=== PATIENT | male | born 1990 | race Caucasian/White ===

== ENCOUNTER 2023-05-24 23:40 | Emergency (ER) | payer SELFPAY ==
[~2023-05-24] VITALS: Ht 177.8 cm; Wt 85.0 kg
[2023-05-24 23:52] VITALS: TEMP 98.4; O2SAT 100
[2023-05-25] MEDS ORDERED: IBUPROFEN 600MG TABLET PO ONE (01:00)
[2023-05-25 02:15] VITALS: BP 118/75; PULSE 80; RESP 16
[2023-05-25] MEDS ORDERED: NAPR-1176 MT (02:15)
[2023-05-25] MEDS ORDERED: KETOROLAC 30MG/ML VIAL IM ONE (02:15)
[2023-05-25] MEDS ORDERED: CYCL10TA21 MT (02:52)
== END 2023-05-25 03:01 | disposition home or self-care (01) ==
LOC: ER 23:40
DX: T14.8XXA Other injury of unspecified body region, initial encounter (principal); X58.XXXA Exposure to other specified factors, initial encounter; Y93.89 Activity, other specified; Y92.89 Other specified places as the place of occurrence of the external cause; Y99.8 Other external cause status
CPT/HCPCS: 99283; 71045; 96372; J1885